=== PATIENT | male | born 1985 | race Caucasian/White ===

== ENCOUNTER 2017-08-27 11:57 | Emergency (ER) | payer SELFPAY ==
[~2017-08-27 11:57] MED LIST: BUTA1CAP51 PO; ETHO250C3 PO; LAMO25TB2 PO; ONDA4TAB97 PO; [UNRECOGNIZED DRUG - CODE] PO
[2017-08-27] MEDS ORDERED: AMIT-108 PO (12:05)
--- NOTE | 2017-08-27 12:07 | ER Report ---
History and Physical Time Seen By MD: 12:07 Hx. of Stated Complaint: PROJECTILE VOMITING AND SEVERE HEADACHE SINCE APPROX 0600. SAME SYMPTOMS THE LAST TIME SHUNT WAS NOT WORKING. HPI/ROS CHIEF COMPLAINT: Headache HISTORY OF PRESENT ILLNESS: 31-year-old male patient presents to emergency room with complaint of headache. Patient states that he is having a headache since early this morning. He states that he has a history of a ventricular peritoneal shunt. He states that that has been replaced multiple times. He is concerned that the headache is secondary to the shunt failing. Patient states this pain is significant. He states he has been vomiting. He states that he has been taking amitriptyline and caffeine for his headache. He states that does not seem to help. Patient is concerned that his shunt is failing and came for further evaluation. Patient states that he does not have a primary care provider who does have a neurosurgeon that follows his shunt. He states that last time was replaced, back in December, that he was shipped to [place] by helicopter from our facility. However reviewing the patient's records there is no indication that had happened. REVIEW OF SYSTEMS: Respiratory: No cough, no dyspnea. Cardiovascular: No chest pain, no palpitations. Gastrointestinal: No vomiting, no abdominal pain. Musculoskeletal: No back pain. Allergies: Coded Allergies: NSAIDS (Non-Steroidal Anti-Inflamma (Verified Allergy, Severe, ANYPHALAXIS , 08/27/17) promethazine (Verified Allergy, Severe, 08/27/17) Heparin Analogues (Verified Allergy, Intermediate, HIVES , 08/27/17) phenytoin (Verified Allergy, Unknown, 08/27/17) prochlorperazine (Verified Allergy, Unknown, 08/27/17) Home Meds Reported Medications Amitriptyline Hcl (AMITRIPTYLINE HCL) 50 Mg Tablet, 50 MG PO QHS, #5 TAB 08/27/17 Lamotrigine (LAMICTAL) 25 Mg Tb.chw.dsp, 75 MG PO TID 12/15/16 Ethosuximide (ETHOSUXIMIDE) 250 Mg Capsule, 500 MG PO TID, CAPSULE 12/15/16 Discontinued Reported Medications Oxycodone Hcl (ROXICODONE) 30 Mg Tablet, 30 MG PO Q8H Y for prn 12/15/16 Discontinued Scripts Butalbital/Aspirin/Caffeine (FIORINAL 50-325-40 MG CAPSULE) 1 Each Capsule, 1-2 EACH PO Q4H for headache for 7 Days, #30 CAPSULE Prov:SUKH WALLACE MD 12/15/16 Ondansetron Hcl (ZOFRAN) 4 Mg Tablet, 4 MG PO Q6H Y for NAUSEA/VOMITING, #10 Prov:ROSAURARAJIVY Surendra 12/15/16 Past Medical/Surgical History Patient has past medical history of RADIOPHARMACIST shunt, hydrocele, head trauma, seizures, ventral hernia, right shoulder fracture, right thumb fracture, right knee fracture, left thumb fracture, anxiety. Patient has a past surgical history of multiple brain surgeries, right anterior cruciate ligament repair. Reviewed Nurses Notes: Yes Hx Substance Use Disorder: No Hx Alcohol Use: No Constitutional Vital Sign - Last 24 Hours 08/27/17 08/27/17 08/27/17 08/27/17 12:00 12:00 12:15 12:45 Temp 98.7 Pulse 136 130 118 Resp 18 B/P (MAP) 142/100 142/100 (114) 143/112 (122) 136/92 (107) Pulse Ox 97 94 97 O2 Delivery Room Air 08/27/17 08/27/17 08/27/17 08/27/17 13:00 13:15 13:22 13:30 Pulse 121 116 116 B/P (MAP) 145/97 (113) 151/101 (118) 142/91 (108) 135/91 (106) Pulse Ox 95 93 91 Intake and Output 08/27/17 08/27/17 08/28/17 15:00 23:00 07:00 Intake Total 1000 ml Balance 1000 ml Physical Exam General Appearance: The patient is alert, has no immediate need for airway protection and no current signs of toxicity. ENT: Tympanic membranes are pearly-howard, auditory canals are patent, mucous membranes are moist. Respiratory: Chest is non tender, lungs are clear to auscultation. Cardiac: regular rate and rhythm Gastrointestinal: Abdomen is soft and non tender, no masses, bowel sounds normal. Musculoskeletal: Neck: Neck is supple and non tender. Extremities have full range of motion and are non tender. Skin: No rashes or lesions. Neuro: Patient is alert and oriented 4, cranial nerves II through XII grossly intact. DIFFERENTIAL DIAGNOSIS: After history and physical exam differential diagnosis was considered for migraine, headache, VT shunt failure, hydrocephaly. Medical Decision Making Data Points Result Diagram: 08/27/17 1222 08/27/17 1222 Laboratory Hematology Test 08/27/17 12:22 Red Blood Count 5.52 M/uL (4.00-5.60) Mean Corpuscular Volume 88.4 fL (80.0-96.0) Mean Corpuscular Hemoglobin 31.1 pg (26.0-33.0) Mean Corpuscular Hemoglobin Concent 35.2 g/dL (32.0-36.0) Red Cell Distribution Width 13.4 % (11.5-14.5) Mean Platelet Volume 7.6 fL (7.2-11.1) Neutrophils (%) (Auto) 67.4 % (39.4-72.5) Lymphocytes (%) (Auto) 23.1 % (17.6-49.6) Monocytes (%) (Auto) 8.4 % (4.1-12.4) Eosinophils (%) (Auto) 0.6 % (0.4-6.7) Basophils (%) (Auto) 0.5 % (0.3-1.4) Nucleated RBC Relative Count (auto) 0.2 /100WBC Neutrophils # (Auto) 5.3 K/uL (2.0-7.4) Lymphocytes # (Auto) 1.8 K/uL (1.3-3.6) Monocytes # (Auto) 0.7 K/uL (0.3-1.0) Eosinophils # (Auto) 0.1 K/uL (0.0-0.5) Basophils # (Auto) 0.0 K/uL (0.0-0.1) Nucleated RBC Absolute Count (auto) 0.01 K/uL Erythrocyte Sedimentation Rate 16 mm/HOUR (0-15) Sodium Level 143 mmol/L (137-145) Potassium Level 3.7 mmol/L (3.5-5.0) Chloride Level 105 mmol/L (98-107) Carbon Dioxide Level 23 mmol/L (22-30) Blood Urea Nitrogen 15 mg/dl (9-21) Creatinine 1.10 mg/dl (0.66-1.25) Glomerular Filtration Rate Calc > 60.0 Random Glucose 100 mg/dl (75-110) Calcium Level 10.2 mg/dl (8.4-10.2) Total Bilirubin 0.5 mg/dl (0.2-1.3) Aspartate Amino Transf (AST/SGOT) 30 U/L (0-35) Alanine Aminotransferase (ALT/SGPT) 63 U/L (0-56) Alkaline Phosphatase 99 U/L (0-126) C-Reactive Protein 0.8 mg/dl (<1.0) Total Protein 8.6 gm/dl (6.3-8.2) Albumin 4.8 g/dl (3.5-5.0) Chemistry Test 08/27/17 12:22 White Blood Count 7.8 k/uL (4.5-11.0) Red Blood Count 5.52 M/uL (4.00-5.60) Hemoglobin 17.2 g/dL (14.0-18.0) Hematocrit 48.8 % (42.0-52.0) Mean Corpuscular Volume 88.4 fL (80.0-96.0) Mean Corpuscular Hemoglobin 31.1 pg (26.0-33.0) Mean Corpuscular Hemoglobin Concent 35.2 g/dL (32.0-36.0) Red Cell Distribution Width 13.4 % (11.5-14.5) Platelet Count 203 K/uL (150-450) Mean Platelet Volume 7.6 fL (7.2-11.1) Neutrophils (%) (Auto) 67.4 % (39.4-72.5) Lymphocytes (%) (Auto) 23.1 % (17.6-49.6) Monocytes (%) (Auto) 8.4 % (4.1-12.4) Eosinophils (%) (Auto) 0.6 % (0.4-6.7) Basophils (%) (Auto) 0.5 % (0.3-1.4) Nucleated RBC Relative Count (auto) 0.2 /100WBC Neutrophils # (Auto) 5.3 K/uL (2.0-7.4) Lymphocytes # (Auto) 1.8 K/uL (1.3-3.6) Monocytes # (Auto) 0.7 K/uL (0.3-1.0) Eosinophils # (Auto) 0.1 K/uL (0.0-0.5) Basophils # (Auto) 0.0 K/uL (0.0-0.1) Nucleated RBC Absolute Count (auto) 0.01 K/uL Erythrocyte Sedimentation Rate 16 mm/HOUR (0-15) Glomerular Filtration Rate Calc > 60.0 Calcium Level 10.2 mg/dl (8.4-10.2) Total Bilirubin 0.5 mg/dl (0.2-1.3) Aspartate Amino Transf (AST/SGOT) 30 U/L (0-35) Alanine Aminotransferase (ALT/SGPT) 63 U/L (0-56) Alkaline Phosphatase 99 U/L (0-126) C-Reactive Protein 0.8 mg/dl (<1.0) Total Protein 8.6 gm/dl (6.3-8.2) Albumin 4.8 g/dl (3.5-5.0) EKG/Imaging Imaging CT Head without contrast Indication: Headache. Comparison: 12/14/2016. Technique: Axial CT images were obtained through the brain from the skull base to the vertex without administration of IV contrast. Reformatted coronal and sagittal images were also obtained. One of the following dose optimization techniques was utilized in the performance of this exam: automated exposure control; adjustment of the mA and/ or kV according to the patient's size; or use of an iterative reconstruction technique. Specific details can be referenced in the facility's radiology CT exam operational policy. Findings: No evidence of mass, mass effect, or midline shift. No acute intracranial hemorrhage or acute territorial infarction. The ventricular peritoneal shunt is unchanged. No indication of hydrocephalus. There is continued periventricular hypoattenuation and subcortical white matter both frontal lobes, unchanged from the previous exam. The meninges both cerebral hemispheres again show benign-appearing calcifications mostly linear and somewhat nodular. This is unchanged from the previous examination. No other abnormal density. Howard/white matter differentiation appears normal. No extra- axial fluid collection. Benign stable calcification in the right superior colliculus. Bony structures show no fractures or lesions. Previous bur holes are seen in both frontal lobes The visualized paranasal sinuses and mastoid air cells are clear. IMPRESSION: 1. Stable exam showing no acute abnormality. Ventriculoperitoneal shunt remains in place and unchanged. No hydrocephalus. Report Dictated By: Kong England at 08/27/2017 12:48 PM Report E-Signed By: Kong England at 08/27/2017 12:56 PM ED Course/Re-evaluation ED Course Patient was admitted and examined, history and physical were obtained. Differential diagnoses were considered. On examination patient is alert and oriented 4, cranial nerves II through XII are grossly intact. He CBC, CMP, CT scan of the head was done. The labs were unremarkable, the CT scan was negative. I did discuss the case with neurologist over in [place]. He felt that I would be best served talking to a neurosurgeon, however he did state that with everything looked normal the patient should be able to be discharged home and follow-up as an outpatient. I discussed with patient that everything was normal as far CT scan of the head, lab work. I discussed with him treating his headache with Toradol, Benadryl, Norflex, promethazine. Patient refused at this time stating he prefers take [id number] medication. We will go ahead and discharge patient home at this time. He verbalized understanding and agreement. I would like him to follow-up with neurosurgery as soon as possible and did give him information for the neurosurgeon in [place]. Decision to Disposition Date: August 27, 2017 Decision to Disposition Time: 13:52 Depart Departure Latest Vital Signs Vital Signs Date Time Temp Pulse Resp B/P (MAP) Pulse Ox O2 Delivery O2 Flow Rate FiO2 08/27/17 13:30 116 135/91 (106) 91 08/27/17 12:00 98.7 18 Room Air Impression: Primary Impression: Headache Condition: Improved Disposition: HOME OR SELF-CARE Patient Instructions: Acute Headache (ED) Additional Instructions: Increase fluid intake. Get plenty of rest. Follow up with a Neurosurgeon [facility] [address] [place], [place] Take Tylenol and Benadryl to help get some sleep with the headache. Return to the ER if condition worsens. Continue with normal medications. Problem Qualifiers Primary Impression: Headache Headache type: unspecified Headache chronicity pattern: acute headache Intractability: not intractable Qualified Codes: R51 - Headache DAGOLUPE AMANDA August 27, 2017 12:07
[2017-08-27] MEDS ORDERED: NS(*) 0.9% 1000 ML BAG 1,000 ML IV ONE (12:22)
[2017-08-27] MEDS ORDERED: MORPHINE 2 MG/ML SYR IVP ONE (12:25)
[2017-08-27 12:31] LABS: PLATELET COUNT, AUTOMATED 203 K/uL (150-450)
--- NOTE | 2017-08-27 12:59 | RADIOLOGY IMAGING REPORT ---
FAC[place] [facility] [place] NAME: Yemi Hoffman : 1985 MR: [id number] V: [id number] EXAM DATE: ORDERING PHYSICIAN: LUPE LOZA TECHNOLOGIST: Location: [facility] - [place] Patient: Yeim Hoffman : 1985 Visit/Account:[id number] Date of Sevice: 08/27/2017 CT Head without contrast Indication: Headache. Comparison: 12/14/2016. Technique: Axial CT images were obtained through the brain from the skull base to the vertex without administration of IV contrast. Reformatted coronal and sagittal images were also obtained. One of the following dose optimization techniques was utilized in the performance of this exam: autom ated exposure control; adjustment of the mA and/or kV according to the patient's size; or use of an i terative reconstruction technique. Specific details can be referenced in the facility's radiology CT exam operational policy. Findings: No evidence of mass, mass effect, or midline shift. No acute intracranial hemorrhage or acute territorial infarction. The ventricular peritoneal shunt is unchanged. No indication of hydrocephalus. There is continued per iventricular hypoattenuation and subcortical white matter both frontal lobes, unchanged from the prev ious exam. The meninges both cerebral hemispheres again show benign-appearing calcifications mostly l inear and somewhat nodular. This is unchanged from the previous examination. No other abnormal densit y. Howard/white matter differentiation appears normal. No extra-axial fluid collection. Benign stable c alcification in the right superior colliculus. Bony structures show no fractures or lesions. Previous bur holes are seen in both frontal lobes The visualized paranasal sinuses and mastoid air cells are clear. IMPRESSION: 1. Stable exam showing no acute abnormality. Ventriculoperitoneal shunt remains in place and unchang ed. No hydrocephalus. Report Dictated By: Kong England at 08/27/2017 12:48 PM Report E-Signed By: Kong England at 08/27/2017 12:56 PM WSN:[id number]
[2017-08-27 13:30] VITALS: BP 135/91
== END 2017-08-27 14:01 | disposition home or self-care (01) ==
LOC: ER 12:00
DX: R51 Headache (principal)
CPT/HCPCS: 70450; 85025; 85651; 86140; 96361; 96374; 99284; J2270; J7030; 82040; 82247; 82310; 82374; 82435; 82565; 82947; 84075; 84132; 84155; 84295; 84450; 84460; 84520